=== PATIENT | female | born 1980 | race African-American/Black ===

== ENCOUNTER 2017-05-04 03:29 | Emergency (ER) | payer SELFPAY ==
--- NOTE | 2017-05-04 04:17 | ER Document Report ---
ED Substance Abuse / Acc. OD - General Mode of Arrival: Ambulatory Information source: Patient TRAVEL OUTSIDE OF THE [place] IN LAST 30 DAYS: No <GLORIA WINTER - Last Filed: 05/04/17 05:55> <YVETTE BULLARD - Last Filed: 05/05/17 03:40> - General Chief Complaint: ETOH Abuse Stated Complaint: ETOH Time Seen by Provider: 05/04/17 03:31 Notes: Patient is a 37-year-old female who presents to the emergency department today with complaints of being intoxicated. Patient states that she does not know why she is here. According to EMS she was picked up because she was found vomiting outside of the [employer]. Patient states she feels like the room is spinning. Patient states she does not drink often but she did drink a lot tonight. Patient drank both liquor and beer. (GLORIA WINTER) - Related Data Allergies/Adverse Reactions: No Known Allergies Allergy (Verified 08/09/15 11:12) Past Medical History - General Information source: Patient - Social History Smoking Status: Unknown if Ever Smoked Cigarette use (# per day): No Frequency of alcohol use: Social Drug Abuse: None Lives with: Family Family History: Reviewed & Not Pertinent - Medical History Medical History: Negative Past Surgical History: Reports: Hx Gynecologic Surgery - Immunizations Hx Diphtheria, Pertussis, Tetanus Vaccination: Yes <GLORIA WINTER - Last Filed: 05/04/17 05:55> Review of Systems - Review of Systems Constitutional: See HPI, Other - Intoxicated EENT: No symptoms reported Cardiovascular: See HPI, Dizziness Respiratory: No symptoms reported Gastrointestinal: See HPI, Vomiting Genitourinary: No symptoms reported Female Genitourinary: No symptoms reported Musculoskeletal: No symptoms reported Skin: No symptoms reported Hematologic/Lymphatic: No symptoms reported Neurological/Psychological: No symptoms reported -: Yes All other systems reviewed and negative <GLORIA WINTER - Last Filed: 05/04/17 05:55> Physical Exam <GLORIA WINTER - Last Filed: 05/04/17 05:55> <YVETTE BULLARD - Last Filed: 05/05/17 03:40> - Vital signs Vitals: Pulse Resp BP Pulse Ox 98 18 115/80 96 05/04/17 03:34 05/04/17 03:34 05/04/17 03:34 05/04/17 03:34 - Notes Notes: Physical Exam: General: Alert, appears intoxicated. HEENT: Normocephalic. Atraumatic. PERRL. Extraocular movements intact. Oropharynx clear. Neck: Supple. Non-tender. Respiratory: No respiratory distress. Clear and equal breath sounds bilaterally. Cardiovascular: Regular rate and rhythm. Abdominal: Normal Inspection. Non-tender. No distension. Normal Bowel Sounds. Back: Non-tender. No deformity or step off. Extremities: Moves all four extremities. Upper extremities: Normal inspection. Normal ROM. Lower extremities: Normal inspection. No edema. Normal ROM. Neurological: Intoxicated. AAOx4. Normal speech. Psychological: unable to assess. Skin: Warm. Dry. Normal color. (GLORIA WINTER) Course - Laboratory Result Diagrams: 05/04/17 03:45 05/04/17 03:45 <GLORIA WINTER - Last Filed: 05/04/17 05:55> - Laboratory Result Diagrams: 05/04/17 03:45 05/04/17 03:45 <YVETTE BULLARD - Last Filed: 05/05/17 03:40> - Re-evaluation Re-evalutation: 05/04/17 05:51 Patient presents emergency department after friends called EMS when she was vomiting in the parking lot of [facility]. Patient states that she was mixing beer and liquor and does not drink on a regular occasion got lightheaded and dizzy and started vomiting ED arrival she states the room is spinning she is nauseated but not vomiting. She is under the alcohol and you can smell it but she is neurologically intact with a GCS of 15. She has not fallen no external signs of trauma labs are stable other than an elevated blood alcohol level. Patient asked for some Tylenol she is complaining of a headache. She remains hemodynamically stable. Patient is safe to be discharged tolerating oral fluids with ride that is safe. Talk to her about mixing beer and liquor together. Follow-up with her primary care physician and discussed reasons for ED return sooner (YVETTE BULLARD) - Vital Signs Vital signs: Temp Pulse Resp BP Pulse Ox 98.5 F 81 18 111/79 98 05/04/17 09:21 05/04/17 09:21 05/04/17 09:21 05/04/17 09:21 05/04/17 09:21 - Laboratory Laboratory results interpreted by me: 05/04/17 05/04/17 05/04/17 03:45 03:45 04:40 MCV 98 H Seg Neuts % (Manual) 19 L Lymphocytes % (Manual) 71 H Abs Neuts (Manual) 0.8 L Sodium 145.1 H Potassium 3.2 L Glucose 137 H Urine Urobilinogen 2.0 H Salicylates < 1.0 L Acetaminophen < 10 L Discharge <GLORIA WINTER - Last Filed: 05/04/17 05:55> <YVETTE BULLARD - Last Filed: 05/05/17 03:40> - Discharge Clinical Impression: Vomiting resolved Elevated ETOH level Qualifiers: Blood alcohol level: 120-199 mg/100 ml Qualified Code(s): Y90.6 - Blood alcohol level of 120-199 mg/100 ml Condition: Stable Disposition: HOME, SELF-CARE Additional Instructions: You have been seen and evaluated for alcohol intoxication with vomiting. The rest of your labs look okay. Recommend that you rest until the alcohol wears out of your system. Be careful mixing liquor and beer together as that can cause a more rapid affect. Follow-up with your primary care physician 2-3 days and return for increased worsening or new symptoms Referrals: [facility] [Provider Group] - Follow up in 3-5 days Scribe Attestation: 05/04/17 05:12 I personally performed the services described in the documentation reviewed the documentation recorded by my scribe in my presence and it accurately and completely records my words and actions (YVETTE BULLARD) Scribe Documentation - Scribe Written by Andreas:: Andreas Bhatti, 05/04/2017 0543 acting as scribe for :: Marvin <GLORIA WINTER - Last Filed: 05/04/17 05:55>
[2017-05-04] MEDS ORDERED: RINGERS SOLUTION,LACTATED 1,000 ML IV PRN (04:18)
[2017-05-04 04:28] LABS: HEMATOCRIT 39.1 % (36.0-47.0); HEMOGLOBIN 13.2 g/dL (12.0-15.5); HGB HCT DIFFERENCE 0.5; MEAN CORPUSCULAR HEMOGLOBIN 33.1 pg (27.0-33.4); MEAN CORPUSCULAR HGB CONC 33.7 g/dL (32.0-36.0); MEAN CORPUSCULAR VOLUME 98 fl (80-97); RED BLOOD COUNT 3.99 10^6/uL (3.72-5.28); RED CELL DISTRIBUTION WIDTH 12.4 % (11.5-14.0); WHITE BLOOD COUNT 4.1 10^3/uL (4.0-10.5)
[2017-05-04 04:35] LABS: ALCOHOL 172 mg/dL (NONE DETECTED); ANION GAP 14 (5-19); BLOOD UREA NITROGEN 10 mg/dL (7-20); CALCIUM 9.3 mg/dL (8.4-10.2); CARBON DIOXIDE 25 mmol/L (22-30); CHLORIDE 106 mmol/L (98-107); CREATININE RESULT 0.67 mg/dL (0.52-1.25); GLUCOSE 137 mg/dL (75-110); POTASSIUM 3.2 mmol/L (3.6-5.0); SODIUM 145.1 mmol/L (137-145)
[2017-05-04 05:08] LABS: APPEARANCE,URINE CLEAR; BILIRUBIN,URINE NEGATIVE (NEGATIVE); GLUCOSE, URINE NEGATIVE (NEGATIVE); KETONES,URINE NEGATIVE (NEGATIVE); LEUKOCYTE ESTERASE,URINE NEGATIVE (NEGATIVE); NITRITE,URINE NEGATIVE (NEGATIVE); PROTEIN,URINE NEGATIVE (NEGATIVE); URINE SPECIFIC GRAVITY 1.005
[2017-05-04] MEDS ORDERED: ACETAMINOPHEN 325 MG TABLET PO ONE (05:12)
[2017-05-04 05:16] LABS: BASOPHILS % (MANUAL) 0 % (0-2); EOSINOPHILS % (MANUAL) 0 % (0-6); LYMPHOCYTES % (MANUAL) 71 % (13-45); TOTAL CELLS COUNTED 100
[2017-05-04 05:18] LABS: OVALOCYTES 1+; POIKILOCYTOSIS 1+
[2017-05-04 05:26] LABS: URINE BARBITURATES SCREEN NEGATIVE; URINE METHADONE SCREEN NEGATIVE; URINE OPIATES LOW NEGATIVE; URINE PHENCYCLIDINE SCREEN NEGATIVE
[2017-05-04 09:22] VITALS: BP 111/79
== END 2017-05-04 09:22 | disposition home or self-care (01) ==
LOC: ER 03:29
DX: F10.10 Alcohol abuse, uncomplicated (principal); R11.10 Vomiting, unspecified; R42 Dizziness and giddiness; R51 Headache; Y90.6 Blood alcohol level of 120-199 mg/100 ml
CPT/HCPCS: 99284; 51701; 96365; 36415; 80307 ×4; 85025; 81025; 80048; 81001; J7120

== ENCOUNTER 2017-08-31 08:28 | Emergency (ER) | payer SELFPAY ==
[2017-08-31] MEDS ORDERED: NORMAL SALINE 1000 ML 1,000 ML IV ONE (08:48)
[2017-08-31] MEDS ORDERED: ONDANSETRON HCL INJ/PF 4 MG/2 ML SDV IV ONE (08:48)
[2017-08-31] MEDS ORDERED: DICYCLOMINE HCL INJ 20 MG/2 ML AMPULE IM ONE (09:14)
--- NOTE | 2017-08-31 09:19 | ER Document Report ---
ED General - General Chief Complaint: Nausea/Vomiting/Diarrhea Stated Complaint: DIARRHEA ABDOMINAL PAIN Time Seen by Provider: 08/31/17 08:48 Mode of Arrival: Ambulatory Information source: Patient Notes: 37-year-old female presents with complaints of 4 day duration of nausea vomiting diarrhea. Patient denies any blood in her stool or vomit. She has been taking Pepto-Bismol. She denies any fevers or chills denies any significant abdominal pain, notes she has intermittent abdominal cramping just prior to that the diarrhea episodes. Patient was able to drink some Gatorade and was urinating last night but continues to vomit Patient denies any well water use, sick exposure, notes she ate beans and food from fast food place prior to these episodes TRAVEL OUTSIDE OF THE [place] IN LAST 30 DAYS: No - HPI Onset: Last week Onset/Duration: Persistent Quality of pain: Cramping Severity: Mild Pain Level: 1 Associated symptoms: Diarrhea, Nausea, Vomiting Exacerbated by: Denies Relieved by: Denies Similar symptoms previously: No Recently seen / treated by doctor: No - Related Data Allergies/Adverse Reactions: No Known Allergies Allergy (Verified 08/31/17 09:36) Past Medical History - Social History Smoking Status: Never Smoker Cigarette use (# per day): No Chew tobacco use (# tins/day): No Smoking Education Provided: No Family History: Reviewed & Not Pertinent - Past Medical History Cardiac Medical History: Denies: Hx Coronary Artery Disease, Hx Heart Attack, Hx Hypertension Pulmonary Medical History: Denies: Hx Asthma, Hx Bronchitis, Hx COPD, Hx Pneumonia Neurological Medical History: Denies: Hx Cerebrovascular Accident, Hx Seizures Musculoskeltal Medical History: Denies Hx Arthritis Past Surgical History: Reports: Hx Gynecologic Surgery - Immunizations Hx Diphtheria, Pertussis, Tetanus Vaccination: Yes Review of Systems - Review of Systems Notes: REVIEW OF SYSTEMS: CONSTITUTIONAL : Denies fever, chills, or sweats. Denies recent illness. EENT: Denies eye, ear, throat, or mouth pain or symptoms. Denies nasal or sinus congestion or discharge. Denies throat, tongue, or mouth swelling or difficulty swallowing. CARDIOVASCULAR: Denies chest pain. Denies palpitations or racing or irregular heart beat. Denies ankle edema. RESPIRATORY: Denies cough, cold, or chest congestion. Denies shortness of breath, difficulty breathing, or wheezing. GASTROINTESTINAL: Admits to nausea vomiting diarrhea GENITOURINARY: Denies difficulty urinating, painful urination, burning, frequency, blood in urine, or discharge. FEMALE GENITOURINARY: Denies vaginal bleeding, heavy or abnormal periods, irregular periods. Denies vaginal discharge or odor. MUSCULOSKELETAL: Denies back or neck pain or stiffness. Denies joint pain or swelling. SKIN: Denies rash, lesions or sores. HEMATOLOGIC : Denies easy bruising or bleeding. LYMPHATIC: Denies swollen, enlarged glands. NEUROLOGICAL: Denies confusion or altered mental status. Denies passing out or loss of consciousness. Denies dizziness or lightheadedness. Denies headache. Denies weakness or paralysis or loss of use of either side. Denies problems with gait or speech. Denies sensory loss, numbness, or tingling. Denies seizures. PSYCHIATRIC: Denies anxiety or stress. Denies depression, suicidal ideation, or homicidal ideation. ALL OTHER SYSTEMS REVIEWED AND NEGATIVE. PHYSICAL EXAMINATION: GENERAL: Well-appearing, well-nourished and in no acute distress. HEAD: Atraumatic, normocephalic. EYES: Pupils equal round and reactive to light, extraocular movements intact, conjunctiva are normal. ENT: Nares patent, oropharynx clear without exudates. Dry lips NECK: Normal range of motion, supple without lymphadenopathy LUNGS: Breath sounds clear to auscultation bilaterally and equal. No wheezes rales or rhonchi. HEART: Tachycardic ABDOMEN: Soft, nontender, nondistended abdomen. No guarding, no rebound. No masses appreciated. Female : deferred Musculoskeletal: Normal range of motion, no pitting or edema. No cyanosis. NEUROLOGICAL: Cranial nerves grossly intact. Normal speech, normal gait. Normal sensory, motor exams PSYCH: Normal mood, normal affect. SKIN: Warm, Dry, normal turgor, no rashes or lesions noted. Dictation was performed using [employer] voice recognition software Physical Exam - Vital signs Vitals: Temp Pulse Resp BP Pulse Ox 98.6 F 122 H 24 H 102/78 96 08/31/17 08:35 08/31/17 08:35 08/31/17 08:35 08/31/17 08:35 08/31/17 08:35 Course - Re-evaluation Re-evalutation: 08/31/17 09:19 Patient is noted to be tachycardic upon arrival, IV fluids will be given, lab work has been ordered. Overall patient looks well but does appear dehydrated 08/31/17 11:30 Patient is noted to have slightly low white blood cell count this was made aware to her I believe this is secondary to her illness. Patient was given IV fluids states he feels better, will discharge home with nausea control and is otherwise well-appearing no distress After performing a Medical Screening Examination, I estimate there is LOW risk for ACUTE APPENDICITIS, BOWEL OBSTRUCTION, ACUTE CHOLECYSTITIS, PERFORATED DIVERTICULITIS, INCARCERATED HERNIA, PANCREATITIS, PELVIC INFLAMMATORY DISEASE, PERFORATED ULCER, ECTOPIC , or TUBO-OVARIAN ABSCESS, thus I consider the discharge disposition reasonable. Also, there is no evidence or peritonitis , sepsis, or toxicity. I have reevaluated this patient multiple times and no significant life threatening changes are noted. The patient and I have discussed the diagnosis and risks, and we agree with discharging home with close follow-up with the understanding that symptoms and presentations can change. We also discussed returning to the Emergency Department immediately if new or worsening symptoms occur. We have discussed the symptoms which are most concerning (e.g., bloody stool, fever, changing or worsening pain, vomiting) that necessitate immediate return. - Vital Signs Vital signs: Temp Pulse Resp BP Pulse Ox 98.6 F 122 H 24 H 102/78 96 08/31/17 08:35 08/31/17 08:35 08/31/17 08:35 08/31/17 08:35 08/31/17 08:35 - Laboratory Result Diagrams: 08/31/17 09:22 08/31/17 09:22 Laboratory results interpreted by me: 08/31/17 08/31/17 09:22 09:22 WBC 2.0 L Hgb 16.1 H Hct 48.0 H Seg Neuts % (Manual) 29 L Band Neutrophils % 1 L Lymphocytes % (Manual) 50 H Monocytes % (Manual) 20 H Abs Neuts (Manual) 0.6 L AST 53 H Total Protein 8.4 H Discharge - Discharge Clinical Impression: Nausea vomiting and diarrhea, Tachycardia, Dehydration Condition: Stable Disposition: HOME, SELF-CARE Instructions: Vomiting ([facility]) Additional Instructions: Follow up with your physician tomorrow for further care or return to the ED IMMEDIATELY if symptoms worsen or new concerns occur. If you cannot afford to follow up with your primary care physician a list of low cost clinics have been provided at the end of your discharge papers as well. Prescriptions: Ondansetron [Zofran Odt 4 mg Tablet] 1 - 2 tab PO Q4H PRN #15 tab.rapdis PRN Reason: For Nausea/Vomiting
[2017-08-31 09:45] LABS: HEMOGLOBIN 16.1 g/dL (12.0-15.5); MEAN CORPUSCULAR HGB CONC 33.6 g/dL (32.0-36.0); MEAN CORPUSCULAR VOLUME 95 fl (80-97); PLATELET COUNT 218 10^3/uL (150-450); RED BLOOD COUNT 5.05 10^6/uL (3.72-5.28); RED CELL DISTRIBUTION WIDTH 12.4 % (11.5-14.0)
[2017-08-31 09:55] LABS: ALANINE AMINOTRANSFERASE 45 U/L (9-52); ALBUMIN 4.8 g/dL (3.5-5.0); ALKALINE PHOSPHATASE 52 U/L (38-126); ANION GAP 16 (5-19); ASPARTATE AMINO TRANSFERASE 53 U/L (14-36); BILIRUBIN,DIRECT 0.3 mg/dL (0.0-0.4); BILIRUBIN,TOTAL 0.4 mg/dL (0.2-1.3); BLOOD UREA NITROGEN 7 mg/dL (7-20); CALCIUM 9.9 mg/dL (8.4-10.2); CARBON DIOXIDE 23 mmol/L (22-30); CHLORIDE 103 mmol/L (98-107); GLUCOSE 85 mg/dL (75-110); LIPASE 50.9 U/L (23-300); POTASSIUM 3.9 mmol/L (3.6-5.0); SODIUM 141.9 mmol/L (137-145); TOTAL PROTEIN 8.4 g/dL (6.3-8.2)
[2017-08-31 10:05] LABS: ABSOLUTE MONOCYTES # (MANUAL) 0.4 10^3/uL (0.1-1.4); ABSOLUTE NEUTROPHILS# (MANUAL) 0.6 10^3/uL (1.7-8.2); BAND NEUTROPHILS % (MANUAL) 1 % (3-5); BASOPHILS % (MANUAL) 0 % (0-2); EOSINOPHILS % (MANUAL) 0 % (0-6); LYMPHOCYTES % (MANUAL) 50 % (13-45); MONOCYTES % (MANUAL) 20 % (3-13); SEGMENTED NEUTROPHILS % (MAN) 29 % (42-78); TOTAL CELLS COUNTED 100
[2017-08-31 10:20] LABS: OVALOCYTES SLIGHT; POIKILOCYTOSIS SLIGHT; POLYCHROMASIA SLIGHT; TOXIC VACUOLATION PRESENT
[2017-08-31 10:21] LABS: PLATELET COMMENT ADEQUATE; TOXIC GRANULATION SLIGHT
[2017-08-31 12:00] VITALS: BP 118/67
[2017-09-03 09:36] LABS: PATH REVIEW PATHOLOGIST REVIEWED
== END 2017-08-31 12:00 | disposition home or self-care (01) ==
LOC: ER 08:28
DX: R11.2 Nausea with vomiting, unspecified (principal); R19.7 Diarrhea, unspecified; E86.0 Dehydration; R00.0 Tachycardia, unspecified
CPT/HCPCS: 99284; 96372; 96361; 96374; 36415; 87045; 87205; 83690; 85025; 80053; 87493; J0500; J2405; J7030